=== PATIENT | female | born 1950 | race Caucasian/White ===

== ENCOUNTER → 2018-09-29 10:48 | Outpatient (CLI) | payer BC, SELFPAY ==
[2018-09-29 12:35] LABS: Alanine Aminotransferase 28 IU/L (9-52); Albumin 4.4 g/dL (3.5-5.0); Albumin Globulin Ratio 1.6 (1.0-2.8); Alkaline Phosphatase 69 U/L (38-126); Aspartate Aminotransferase 22 IU/L (14-36); BUN Creatinine Ratio 14.4 (6-22); Bilirubin Total 0.6 mg/dL (0.2-1.3); Blood Urea Nitrogen 13 mg/dL (7-17); Calcium 9.7 mg/dL (8.4-10.2); Carbon Dioxide 28 mmol/L (22-32); Chloride 102 mmol/L (98-107); Cholesterol 258 mg/dL (140-199); Estimated Glomerular Filt Rate > 60.0 mL/min (>60); Globulin 2.8 g/dL (1.7-4.1); Glucose 99 mg/dL (80-110); HDL Cholesterol 55 mg/dL (40-60); HEMOLYSIS < 15 (0-50); LDL Cholesterol Calculated 140 mg/dL (<100); Potassium 4.9 mmol/L (3.4-5.1); Sodium 141 mmol/L (137-145); Total Protein 7.2 g/dL (6.3-8.2); Triglycerides 315 mg/dL (35-150)
[2018-09-29 14:06] LABS: Creatinine Urine Random 33.8 mg/dL
[2018-09-29 14:12] LABS: Microalbumi Creatinin Ratio Ur 17.7 ug/mg CR (<30); Microalbumin Urine Random < 0.6 mg/dL (0-1.6)
== END ==
PROVIDERS: PCP Physician Assistant; Visit Provider Physician Assistant
DX: E78.5 Hyperlipidemia, unspecified (principal); I10 Essential (primary) hypertension
CPT/HCPCS: 36415; 80053; 80061; 82043; 82570

== ENCOUNTER → 2018-12-16 14:50 | Outpatient (CLI) | payer BC, SELFPAY ==
--- NOTE | 2018-12-16 | DI.MG.S_ITS ---
BILATERAL DIGITAL SCREENING MAMMOGRAM 3D/2D WITH CAD: 12/16/2018 CLINICAL: Routine screening. Comparison is made to exams dated: 12/15/2017 mammogram, 11/08/2016 mammogram - [facility], and 08/04/2015 mammogram - [facility]. The tissue of both breasts is heterogeneously dense. This may lower the sensitivity of mammography. Current study was also evaluated with a Computer Aided Detection (CAD) system. No significant masses, calcifications, or other findings are seen in either breast. There has been no significant interval change. IMPRESSION: NEGATIVE There is no mammographic evidence of malignancy. A 1 year screening mammogram is recommended. This exam was interpreted at Station ID: [id number]. NOTE: For mammograms, a report in lay terms will be sent to the patient. Approximately 15% of breast malignancies will not be visualized mammographically. In the management of a palpable breast mass, a negative mammogram must not discourage biopsy of a clinically suspicious lesion. Electronically Signed By: Kimberlee walker/ayah:12/16/2018 16:24:36 letter sent: Normal Exam ACR BI-RADS Category 1: Negative 3341F
== END ==
PROVIDERS: PCP Physician Assistant; Visit Provider Physician Assistant
DX: Z12.31 Encounter for screening mammogram for malignant neoplasm of breast (principal)
CPT/HCPCS: 77063; 77067

== ENCOUNTER → 2019-08-06 09:48 | Outpatient (CLI) | payer BC, SELFPAY ==
[2019-08-06 11:16] LABS: Alanine Aminotransferase 16 IU/L (9-52); Albumin 4.3 g/dL (3.5-5.0); Albumin Globulin Ratio 1.3 (1.0-2.8); Alkaline Phosphatase 67 U/L (38-126); Aspartate Aminotransferase 24 IU/L (14-36); BUN Creatinine Ratio 16.7 (6-22); Bilirubin Total 0.7 mg/dL (0.2-1.3); Blood Urea Nitrogen 15 mg/dL (7-17); Calcium 9.7 mg/dL (8.4-10.2); Carbon Dioxide 28 mmol/L (22-32); Chloride 103 mmol/L (98-107); Cholesterol 243 mg/dL (140-199); Estimated Glomerular Filt Rate > 60.0 mL/min (>60); Globulin 3.3 g/dL (1.7-4.1); Glucose 103 mg/dL (80-110); HDL Cholesterol 49 mg/dL (40-60); HEMOLYSIS < 15 (0-50); LDL Cholesterol Calculated 120 mg/dL (<100); Potassium 4.7 mmol/L (3.4-5.1); Sodium 139 mmol/L (137-145); Total Protein 7.6 g/dL (6.3-8.2); Triglycerides 370 mg/dL (35-150)
[2019-08-06 11:40] LABS: Creatinine Urine Random 62.1 mg/dL
[2019-08-06 11:48] LABS: Microalbumi Creatinin Ratio Ur 9.6 ug/mg CR (<30); Microalbumin Urine Random < 0.6 mg/dL (0-1.6)
[2019-08-06 11:56] LABS: Vitamin D 25 Hydroxy (D3) 35.2 ng/mL (30.0-100.0)
== END ==
PROVIDERS: PCP Physician Assistant; Visit Provider Physician Assistant
DX: E78.2 Mixed hyperlipidemia (principal); Z98.890 Other specified postprocedural states; M81.0 Age-related osteoporosis without current pathological fracture
CPT/HCPCS: 36415; 80053; 80061; 82043; 82306; 82570

== ENCOUNTER → 2019-11-09 13:16 | Outpatient (CLI) | payer BC, SELFPAY ==
[2019-11-09 16:02] LABS: Thyroid Stimulating Hormone 3.45 uIU/mL (0.47-4.68)
== END ==
PROVIDERS: PCP Physician Assistant; Visit Provider Internal Medicine Cardiovascular Disease
DX: E78.5 Hyperlipidemia, unspecified (principal)
CPT/HCPCS: 36415; 84443

== ENCOUNTER → 2019-11-19 09:04 | Outpatient (CLI) | payer BC, SELFPAY ==
[2019-11-19 10:19] LABS: Cholesterol 240 mg/dL (140-199); HDL Cholesterol 52 mg/dL (40-60); LDL Cholesterol Calculated 145 mg/dL (<100); Triglycerides 216 mg/dL (35-150)
[2019-11-19 11:03] LABS: Hep C Virus Ab w/Reflex Quant NEGATIVE s/c (NEGATIVE)
== END ==
PROVIDERS: PCP Physician Assistant; Visit Provider Physician Assistant
DX: Z11.59 Encounter for screening for other viral diseases (principal); E78.2 Mixed hyperlipidemia
CPT/HCPCS: 36415; 80061; 86803

== ENCOUNTER → 2020-03-28 10:25 | Outpatient (CLI) | payer BC, SELFPAY ==
--- NOTE | 2020-03-28 | DI.MG.S_ITS ---
BILATERAL DIGITAL SCREENING MAMMOGRAM 3D/2D WITH CAD: 03/28/2020 CLINICAL: Routine screening. Comparison is made to exams dated: 12/16/2018 mammogram, 12/15/2017 mammogram, and 11/08/2016 mammogram - [facility]. The tissue of both breasts is heterogeneously dense. This may lower the sensitivity of mammography. Current study was also evaluated with a Computer Aided Detection (CAD) system. No significant masses, calcifications, or other findings are seen in either breast. There has been no significant interval change. IMPRESSION: NEGATIVE There is no mammographic evidence of malignancy. A 1 year screening mammogram is recommended. This exam was interpreted at Station ID: [id number]. NOTE: For mammograms, a report in lay terms will be sent to the patient. Approximately 15% of breast malignancies will not be visualized mammographically. In the management of a palpable breast mass, a negative mammogram must not discourage biopsy of a clinically suspicious lesion. Electronically Signed By: Edith curtis/ayah:03/28/2020 11:40:22 copy to: JEMMA WILDER letter sent: Normal Exam ACR BI-RADS Category 1: Negative 3341F
== END ==
PROVIDERS: PCP Family Medicine; Referring Provider Physician Assistant; Visit Provider Physician Assistant
DX: Z12.31 Encounter for screening mammogram for malignant neoplasm of breast (principal)
CPT/HCPCS: 77063; 77067

== ENCOUNTER → 2020-07-13 09:38 | Outpatient (CLI) | payer BC, SELFPAY ==
[2020-07-13 10:13] LABS: Alanine Aminotransferase 21 IU/L (<35); Albumin 4.2 g/dL (3.5-5.0); Albumin Globulin Ratio 1.5 (1.0-2.8); Alkaline Phosphatase 68 U/L (38-126); Aspartate Aminotransferase 25 IU/L (14-36); BUN Creatinine Ratio 13.5 (6-22); Bilirubin Total 0.6 mg/dL (0.2-1.3); Blood Urea Nitrogen 12 mg/dL (7-17); Calcium 9.3 mg/dL (8.4-10.2); Carbon Dioxide 28 mmol/L (22-32); Chloride 106 mmol/L (98-107); Cholesterol 174 mg/dL (140-199); Estimated Glomerular Filt Rate > 60.0 mL/min (>60); Globulin 2.8 g/dL (1.7-4.1); Glucose 100 mg/dL (80-110); HDL Cholesterol 65 mg/dL (40-60); HEMOLYSIS < 15 (0-50); LDL Cholesterol Calculated 62 mg/dL (<100); Potassium 4.6 mmol/L (3.4-5.1); Sodium 138 mmol/L (137-145); Triglycerides 237 mg/dL (35-150)
== END ==
PROVIDERS: PCP Family Medicine; Referring Provider Family Medicine; Visit Provider Family Medicine
DX: E78.2 Mixed hyperlipidemia (principal)
CPT/HCPCS: 36415; 80053; 80061

== ENCOUNTER → 2020-08-11 10:31 | Outpatient (CLI) | payer BC, SELFPAY ==
[2020-08-13 13:16] LABS: COVID19 Sendout Not Detected
== END ==
PROVIDERS: PCP Family Medicine; Visit Provider Family Medicine
DX: J45.20 Mild intermittent asthma, uncomplicated (principal); R05 Cough
CPT/HCPCS: 87635

== ENCOUNTER → 2020-09-09 08:26 | Outpatient (CLI) | payer BC, SELFPAY ==
[2020-09-09 09:43] LABS: Add Manual Diff / Slide Review NO; Basophils Absolute Auto 0 /uL (0-100); Basophils Percent Auto 0.6 % (0-2); Eosinophils Absolute Auto 300 /uL (0-450); Eosinophils Percent Auto 8.1 % (2-4); Hematocrit 38.2 % (36-46); Hemoglobin 12.9 g/dL (12.0-16.0); Lymphocytes Absolute Auto 1100 /uL (1100-4500); Lymphocytes Percent Auto 27.5 % (25-40); Mean Corpuscular HGB Conc 33.8 % (30-36); Mean Corpuscular Hemoglobin 32.5 PG (26-34); Monocytes Absolute Auto 300 /uL (0-900); Monocytes Percent Auto 8.1 % (3-14); Neutrophils Absolute Auto 2200 /uL (1500-7000); Neutrophils Percent Auto 55.7 % (50-75); Platelet Count 245 X10^3/uL (150-400); Red Blood Cell Count 3.98 X10^6/uL (4.0-5.2); Red Cell Distribution Width 13.4 % (11.6-14.8); White Blood Cell Count 3.9 X10^3/uL (4.5-11.0)
[2020-09-09 10:30] LABS: Alanine Aminotransferase 23 IU/L (<35); Albumin 4.1 g/dL (3.5-5.0); Albumin Globulin Ratio 1.5 (1.0-2.8); Alkaline Phosphatase 77 U/L (38-126); Aspartate Aminotransferase 26 IU/L (14-36); BUN Creatinine Ratio 13.8 (6-22); Bilirubin Total 0.6 mg/dL (0.2-1.3); Blood Urea Nitrogen 11 mg/dL (7-17); Calcium 9.6 mg/dL (8.4-10.2); Carbon Dioxide 29 mmol/L (22-32); Chloride 104 mmol/L (98-107); Cholesterol 181 mg/dL (140-199); Estimated Glomerular Filt Rate > 60.0 mL/min (>60); Globulin 2.8 g/dL (1.7-4.1); Glucose 121 mg/dL (80-110); HDL Cholesterol 80 mg/dL (40-60); HEMOLYSIS < 15 (0-50); LDL Cholesterol Calculated 64 mg/dL (<100); Potassium 4.8 mmol/L (3.4-5.1); Sodium 137 mmol/L (137-145); Total Protein 6.9 g/dL (6.3-8.2); Triglycerides 186 mg/dL (35-150)
[2020-09-09 11:00] LABS: TSH w/ Reflex to FT4 3.11 uIU/mL (0.47-4.68)
== END ==
PROVIDERS: PCP Family Medicine; Referring Provider Family Medicine; Visit Provider Family Medicine
DX: Z00.00 Encounter for general adult medical examination without abnormal findings (principal)
CPT/HCPCS: 36415; 80053; 80061; 84443; 85025

== ENCOUNTER → 2021-03-29 11:25 | Outpatient (CLI) | payer BC, SELFPAY ==
--- NOTE | 2021-03-29 | DI.MG.S_ITS ---
BILATERAL DIGITAL SCREENING MAMMOGRAM 3D/2D WITH CAD: 03/29/2021 CLINICAL: Routine screening. Comparison is made to exams dated: 03/28/2020 mammogram, 12/16/2018 mammogram, and 12/15/2017 mammogram - [facility]. The tissue of both breasts is heterogeneously dense. This may lower the sensitivity of mammography. Current study was also evaluated with a Computer Aided Detection (CAD) system. No significant masses, calcifications, or other findings are seen in either breast. There has been no significant interval change. IMPRESSION: NEGATIVE There is no mammographic evidence of malignancy. A 1 year screening mammogram is recommended. This exam was interpreted at Station ID: [id number]. NOTE: For mammograms, a report in lay terms will be sent to the patient. Approximately 15% of breast malignancies will not be visualized mammographically. In the management of a palpable breast mass, a negative mammogram must not discourage biopsy of a clinically suspicious lesion. Electronically Signed By: Christopher sheppard/ayah:03/29/2021 12:24:00 copy to: JEMMA WILDER letter sent: Normal Exam ACR BI-RADS Category 1: Negative 3341F
== END ==
PROVIDERS: PCP Family Medicine; Referring Provider Family Medicine; Visit Provider Family Medicine
DX: Z12.31 Encounter for screening mammogram for malignant neoplasm of breast (principal)
CPT/HCPCS: 77063; 77067

== ENCOUNTER → 2021-07-20 10:02 | Outpatient (CLI) | payer BC, SELFPAY ==
[2021-07-20 11:36] LABS: COVID19 -Nasal RAPID Negative (Negative)
== END ==
PROVIDERS: PCP Family Medicine; Visit Provider Nurse Practitioner
DX: Z20.822 Contact with and (suspected) exposure to COVID-19 (principal)
CPT/HCPCS: 87635

== ENCOUNTER → 2021-08-08 09:16 | Outpatient (CLI) | payer BC, SELFPAY ==
[2021-08-08 09:33] LABS: Add Manual Diff / Slide Review NO; Basophils Absolute Auto 0 /uL (0-100); Basophils Percent Auto 0.8 % (0-2); Eosinophils Absolute Auto 500 /uL (0-450); Eosinophils Percent Auto 11.3 % (2-4); Hematocrit 39.6 % (36-46); Hemoglobin 13.1 g/dL (12.0-16.0); Lymphocytes Absolute Auto 1500 /uL (1100-4500); Lymphocytes Percent Auto 33.1 % (25-40); Mean Corpuscular Hemoglobin 31.3 PG (26-34); Mean Corpuscular Volume 94.6 fL (80-100); Monocytes Absolute Auto 300 /uL (0-900); Monocytes Percent Auto 7.8 % (3-14); Neutrophils Absolute Auto 2100 /uL (1500-7000); Platelet Count 217 X10^3/uL (150-400); Red Blood Cell Count 4.19 X10^6/uL (4.0-5.2); Red Cell Distribution Width 13.3 % (11.6-14.8); White Blood Cell Count 4.4 X10^3/uL (4.5-11.0)
[2021-08-08 09:43] LABS: Hemoglobin A1C% w Est Avg Glu 5.6 % (4.0-6.0)
[2021-08-08 10:13] LABS: Alanine Aminotransferase 30 IU/L (<35); Albumin 4.2 g/dL (3.5-5.0); Albumin Globulin Ratio 1.6 (1.0-2.8); Alkaline Phosphatase 57 U/L (38-126); Aspartate Aminotransferase 27 IU/L (14-36); BUN Creatinine Ratio 17.6 (6-22); Bilirubin Total 0.5 mg/dL (0.2-1.3); Blood Urea Nitrogen 15 mg/dL (7-17); Calcium 9.6 mg/dL (8.4-10.2); Carbon Dioxide 30 mmol/L (22-32); Chloride 100 mmol/L (98-107); Cholesterol 192 mg/dL (140-199); Estimated Glomerular Filt Rate > 60.0 mL/min (>60); Globulin 2.6 g/dL (1.7-4.1); Glucose 107 mg/dL (80-110); HDL Cholesterol 62 mg/dL (40-60); HEMOLYSIS < 15 (0-50); LDL Cholesterol Calculated 96 mg/dL (<100); Potassium 4.2 mmol/L (3.4-5.1); Sodium 135 mmol/L (137-145); Total Protein 6.8 g/dL (6.3-8.2); Triglycerides 169 mg/dL (35-150)
[2021-08-08 10:44] LABS: TSH w/ Reflex to FT4 5.28 uIU/mL (0.47-4.68)
[2021-08-08 11:14] LABS: Free T4, Direct Thyroxine 0.89 ng/dL (0.78-2.19)
== END ==
PROVIDERS: PCP Family Medicine; Referring Provider Family Medicine; Visit Provider Family Medicine
DX: Z00.00 Encounter for general adult medical examination without abnormal findings (principal); E78.2 Mixed hyperlipidemia; R73.03 Prediabetes
CPT/HCPCS: 36415; 80053; 80061; 83036; 84439; 84443; 85025

== ENCOUNTER → 2021-11-22 10:21 | Outpatient (CLI) | payer BC, SELFPAY ==
[2021-11-22 11:32] LABS: Alanine Aminotransferase 25 IU/L (<35); Albumin 4.3 g/dL (3.5-5.0); Albumin Globulin Ratio 1.5 (1.0-2.8); Alkaline Phosphatase 55 U/L (38-126); Aspartate Aminotransferase 32 IU/L (14-36); BUN Creatinine Ratio 17.4 (6-22); Bilirubin Total 0.5 mg/dL (0.2-1.3); Blood Urea Nitrogen 15 mg/dL (7-17); Calcium 9.6 mg/dL (8.4-10.2); Carbon Dioxide 28 mmol/L (22-32); Chloride 106 mmol/L (98-107); Cholesterol 183 mg/dL (140-199); Estimated Glomerular Filt Rate > 60.0 mL/min (>60); Globulin 2.9 g/dL (1.7-4.1); Glucose 93 mg/dL (80-110); HDL Cholesterol 72 mg/dL (40-60); HEMOLYSIS < 15 (0-50); LDL Cholesterol Calculated 74 mg/dL (<100); Potassium 4.5 mmol/L (3.4-5.1); Sodium 140 mmol/L (137-145); Total Protein 7.2 g/dL (6.3-8.2); Triglycerides 184 mg/dL (35-150)
[2021-11-22 13:08] LABS: Free T4, Direct Thyroxine 0.93 ng/dL (0.78-2.19)
[2021-11-22 13:23] LABS: Thyroid Stimulating Hormone 1.78 uIU/mL (0.47-4.68)
== END ==
PROVIDERS: PCP Family Medicine; Referring Provider Family Medicine; Visit Provider Family Medicine
DX: E03.9 Hypothyroidism, unspecified (principal); E78.2 Mixed hyperlipidemia
CPT/HCPCS: 36415; 80053; 80061; 84439; 84443

== ENCOUNTER → 2022-03-04 13:46 | Outpatient (CLI) | payer BC, SELFPAY ==
--- NOTE | 2022-03-04 | DI.ECHO.S_ITS ---
[place] [facility]---------+ [facility] +---------+ : : [address] : : : : [id number] : : : : Phone: [phone]+ Echocardiogram Report + + :Name: BRIAN CARBAJAL Study Date: 03/04/2022 Height: 72 in : :[facility] ReadingLocation: Weight: 150 lb : : Gender: Female BSA: 1.9 m2 : :: 1950 Age: 71 yrs BP: 131/77 mmHg: :Reason For Study: POST MITRAL VALVE REPAIR : :Ordering Physician: ARIEL, : :GRICEL Performed By: Alyce Stephen : :Referring: GRICEL GEORGE : + + Interpretation Summary 1) Normal left ventricular thickness, size, wall motion, and systolic function (EF 55-60%). 2) Normal right ventricular size and function. 3) An annuloplasty ring is noted in the mitral position. There is trace mitral regurgitation. 4) compared to the Echo done 01/28/2018, no significant change. Procedure: A two-dimensional transthoracic echocardiogram with color flow and Doppler was performed. The study quality was technically adequate. Comparison is made with the echocardiogram of 01/28/2018. The patient was in sinus rhythm with heart rates between 65-75 bpm during the exam. Left Ventricle: The left ventricle is normal in size and wall thickness. The ejection fraction is estimated to be 55-60%. Left ventricular systolic function appears normal without focal wall motion abnormalities. Right Ventricle: The right ventricle is normal in size and function. Atria: The left atrial size is normal. Right atrial size is normal. There is no Doppler evidence for an interatrial shunt. Mitral Valve: An annuloplasty ring is noted in the mitral position. There is trace mitral regurgitation. Aortic Valve: The aortic valve is trileaflet. The aortic valve opens well. There is no aortic valve stenosis. There is trace aortic regurgitation. Tricuspid Valve: There is mild tricuspid regurgitation. The right ventricular systolic pressure is estimated to be at least 24 mmHg based on an estimated right atrial pressure of 3 mm Hg. Pulmonic Valve: The pulmonic valve is not well seen, but is grossly normal. There is moderate pulmonic regurgitation. Great Vessels: The aortic root is normal size. The dimensions of the ascending aorta are normal. The IVC is of normal diameter and collapses greater than 50% with a sniff. This suggests a low right atrial pressure of 3 mm Hg. Pericardium/ Pleura There is no pericardial effusion. There is no pleural effusion. MMode/2D Measurements & Calculations LVIDd: 4.8 cm LVOT diam: 2.0 cm LVIDs: 3.3 cm Ao root diam: 3.5 cm FS: 32.3 % asc Aorta Diam: 3.5 cm IVSd: 1.00 cm Ao Arch Diam (Prox Trans): 2.7 cm LVPWd: 0.94 cm LV sheffield. diameter/BSA (cm/m^2): 2.6 LV sys. diameter/BSA (cm/m^2): 1.7 LA A2 area: 21.6 cm2 RA long axis: 5.5 cm LA A4 area: 15.7 cm2 RA area: 16.7 cm2 LA length (vol): 4.8 cm RA vol: 43.1 ml LA vol: 59.7 ml RA : 22.9 ml/m2 LA vol index: 31.7 ml/m2 IVC diam: 0.95 cm RVD1 (basal): 2.9 cm RVD2 (mid): 2.7 cm TAPSE: 1.6 cm Doppler Measurements & Calculations Ao V2 max: 111.4 cm/sec LVOT Max Oren: 67.3 cm/sec Ao V2 mean: 74.3 cm/sec LV V1 max P.8 mmHg Ao max P.0 mmHg LV V1 VTI: 15.3 cm Ao mean P.5 mmHg PUSHPA(I,D): 2.0 cm2 Ao V2 VTI: 22.9 cm PUSHPA(V,D): 1.8 cm2 sev ratio: 0.67 PUSHPA indexed to BSA (cm^2/m^2): 1.1 MV E max oren: 68.4 cm/sec TR max oren: 231.0 cm/sec MV A max oren: 106.4 cm/sec TR max P.3 mmHg MV E/A: 0.64 PA pr(Accel): 27.6 mmHg Med Peak E' Oren: 6.7 cm/sec E/E' med: 10.2 Lat Peak E' Oren: 7.3 cm/sec E/E' lat: 9.3 E/e' average: 9.8 MV dec time: 0.35 sec MVA(VTI): 1.3 cm2 MV V2 mean: 67.7 cm/sec SV(LVOT): 45.8 ml MV mean P.1 mmHg MV V2 VTI: 36.5 cm Reading Physician:03:13 PM
== END ==
PROVIDERS: PCP Family Medicine; Referring Provider Internal Medicine Cardiovascular Disease; Visit Provider Internal Medicine Cardiovascular Disease
DX: Z98.890 Other specified postprocedural states (principal); I07.1 Rheumatic tricuspid insufficiency; I37.1 Nonrheumatic pulmonary valve insufficiency
CPT/HCPCS: 93306

== ENCOUNTER → 2022-04-23 11:10 | Outpatient (CLI) | payer BC, SELFPAY ==
--- NOTE | 2022-04-23 | DI.MG.S_ITS ---
BILATERAL DIGITAL SCREENING MAMMOGRAM 3D/2D WITH CAD: 04/23/2022 CLINICAL: Routine screening. Comparison is made to exams dated: 03/29/2021 mammogram, 03/28/2020 mammogram, 12/16/2018 mammogram, and 12/15/2017 mammogram - [facility]. The tissue of both breasts is heterogeneously dense. This may lower the sensitivity of mammography. Current study was also evaluated with a Computer Aided Detection (CAD) system. No significant masses, calcifications, or other findings are seen in either breast. There has been no significant interval change. IMPRESSION: NEGATIVE There is no mammographic evidence of malignancy. A 1 year screening mammogram is recommended. This exam was interpreted at Station ID: [id number]. NOTE: For mammograms, a report in lay terms will be sent to the patient. Approximately 15% of breast malignancies will not be visualized mammographically. In the management of a palpable breast mass, a negative mammogram must not discourage biopsy of a clinically suspicious lesion. Electronically Signed By: Terrence lee/ayah:04/23/2022 12:31:24 copy to: JEMMA WILDER letter sent: Normal Exam ACR BI-RADS Category 1: Negative 3341F
== END ==
PROVIDERS: PCP Family Medicine; Referring Provider Family Medicine; Visit Provider Family Medicine
DX: Z12.31 Encounter for screening mammogram for malignant neoplasm of breast (principal)
CPT/HCPCS: 77063; 77067

== ENCOUNTER → 2022-06-21 14:22 | Outpatient (CLI) | payer BC, SELFPAY ==
--- NOTE | 2022-06-21 14:23 | DI.RAD.S_ITS ---
PROCEDURE: XR CHEST 2V INDICATIONS: assess for atelectasis vs other with covid hx and asthma dx TECHNIQUE: 2 views of the chest were acquired. COMPARISON: None. FINDINGS: Surgical changes and devices: Postsurgical changes are seen with sternotomy wires and prosthetic heart valve. Lungs and pleura: Lungs are clear. No pleural effusions or pneumothorax. Mediastinum: Mediastinal contours are normal. Heart size is normal. Bones and chest wall: No suspicious bony abnormalities. Soft tissues appear unremarkable. IMPRESSION: No acute cardiopulmonary abnormality. Dictated by: Eulalio Puckett M.D. on 06/21/2022 at 16:44 Approved by: Eulalio Puckett M.D. on 06/21/2022 at 16:44
== END ==
PROVIDERS: PCP Family Medicine; Referring Provider Family Medicine; Visit Provider Pediatrics
DX: R05.3 Chronic cough (principal)
CPT/HCPCS: 71046

== ENCOUNTER → 2022-10-08 10:18 | Outpatient (CLI) | payer BC, SELFPAY ==
[2022-10-08 12:12] LABS: Add Manual Diff / Slide Review NO; Basophils Absolute Auto 0 /uL (0-100); Basophils Percent Auto 0.7 % (0-2); Eosinophils Absolute Auto 400 /uL (0-450); Eosinophils Percent Auto 11.2 % (2-4); Hematocrit 36.2 % (36-46); Hemoglobin 12.5 g/dL (12.0-16.0); Lymphocytes Absolute Auto 1200 /uL (1100-4500); Lymphocytes Percent Auto 32.2 % (25-40); Mean Corpuscular HGB Conc 34.4 % (30-36); Mean Corpuscular Hemoglobin 31.8 PG (26-34); Mean Corpuscular Volume 92.6 fL (80-100); Monocytes Absolute Auto 400 /uL (0-900); Monocytes Percent Auto 10.3 % (3-14); Neutrophils Absolute Auto 1700 /uL (1500-7000); Neutrophils Percent Auto 45.6 % (50-75); Platelet Count 316 X10^3/uL (150-400); Red Blood Cell Count 3.91 X10^6/uL (4.0-5.2); White Blood Cell Count 3.7 X10^3/uL (4.5-11.0)
[2022-10-08 13:13] LABS: Alanine Aminotransferase 20 IU/L (<35); Albumin 3.8 g/dL (3.5-5.0); Albumin Globulin Ratio 1.5 (1.0-2.8); Alkaline Phosphatase 79 U/L (38-126); Aspartate Aminotransferase 21 IU/L (14-36); BUN Creatinine Ratio 13.6 (6-22); Bilirubin Total 0.5 mg/dL (0.2-1.3); Blood Urea Nitrogen 11 mg/dL (7-17); Calcium 9.2 mg/dL (8.4-10.2); Carbon Dioxide 27 mmol/L (22-32); Chloride 103 mmol/L (98-107); Cholesterol 141 mg/dL (140-199); Estimated Glomerular Filt Rate > 60 mL/min (>60); Globulin 2.5 g/dL (1.7-4.1); Glucose 93 mg/dL (80-110); HDL Cholesterol 48 mg/dL (40-60); HEMOLYSIS < 15 (0-50); LDL Cholesterol Calculated 68 mg/dL (<100); Potassium 4.8 mmol/L (3.4-5.1); Sodium 138 mmol/L (137-145); Total Protein 6.3 g/dL (6.3-8.2); Triglycerides 127 mg/dL (35-150)
[2022-10-08 18:11] LABS: Thyroid Stimulating Hormone 1.42 uIU/mL (0.47-4.68)
== END ==
PROVIDERS: PCP Family Medicine; Referring Provider Family Medicine; Visit Provider Family Medicine
DX: Z00.00 Encounter for general adult medical examination without abnormal findings (principal); D12.6 Benign neoplasm of colon, unspecified; E03.9 Hypothyroidism, unspecified; E78.2 Mixed hyperlipidemia; M85.80 Other specified disorders of bone density and structure, unspecified site; R73.03 Prediabetes
CPT/HCPCS: 36415; 80053; 80061; 83036; 84439; 84443; 85025

== ENCOUNTER → 2022-10-14 12:26 | Outpatient (CLI) | payer BC, SELFPAY ==
--- NOTE | 2022-10-14 12:27 | DI.RAD.S_ITS ---
PROCEDURE: XR DEXA AXIAL SKELETON INDICATIONS: Patient has a history of osteopenia, follow-up COMPARISON: None. FINDINGS: This blank DEXA report has been sent in error by the PACS system. The correct and complete report will be forthcoming in 1-2 days. Thank you for your patience and understanding. Dictated by: Diana Esqueda MD, PhD on 10/15/2022 at 13:19 Approved by: Diana Esqueda MD, PhD on 10/15/2022 at 13:19
== END ==
PROVIDERS: PCP Family Medicine; Referring Provider Family Medicine; Visit Provider Family Medicine
DX: M85.88 Other specified disorders of bone density and structure, other site (principal); Z13.820 Encounter for screening for osteoporosis; Z78.0 Asymptomatic menopausal state
CPT/HCPCS: 77080

== ENCOUNTER → 2023-05-05 11:14 | Outpatient (CLI) | payer BC, SELFPAY ==
--- NOTE | 2023-05-05 14:10 | DI.MRI.S_ITS ---
BREAST MRI OF BOTH BREASTS: 05/05/2023 CLINICAL: History of Heterogenously dense breast. Comparison is made to exams dated: 04/23/2022 mammogram, 03/29/2021 mammogram, and 03/28/2020 mammogram - [facility]. PROCEDURE: MR BREAST BI WO/W CON INDICATIONS: Pt with hx of heterogenously dense breasts TECHNIQUE: The patient was placed prone in a dedicated breast imaging coil. Precontrast axial STIR and 3D FLASH without fat saturation sequences were obtained. Both before and after bolus injection of contrast, sequential 1-minute axial 3D FLASH with fat saturation sequences for 3 time points, with subtraction images and maximum intensity projections (MIP's) generated. Delayed sagittal FLASH images with fat saturation were also obtained. Computer-aided detection, including computer algorithm analysis of MRI image data for lesion detection and characterization, pharmacokinetic analysis, with further physician review for interpretation, was performed. FINDINGS: Image quality: Good There is mild background parenchymal enhancement. Right breast: No suspicious mass, non-mass enhancement, or focus. Left breast: No suspicious mass, non-mass enhancement, or focus. Miscellaneous: Sternotomy wires and cardiac valve device is seen. No suspicious findings in the axillary or internal mammary regions. Partially visualized upper abdomen is unremarkable. There is a partially visualized suspected hiatal hernia. IMPRESSION: NEGATIVE No suspicious findings in either breast. Recommend continued screening mammogram and supplemental MR screening. BIRADS 1 COMMENT: The imaging literature indicates that a negative contrast breast MRI examination has a high sensitivity and a moderate specificity for detecting and excluding invasive carcinomas to a detection threshold of 3-5 mm; nonetheless, appropriate clinical and mammographic follow-up are recommended. MRI is not sensitive for detecting DCIS (ductal carcinoma in situ) and may not detect large invasive neoplasms that show only minimal enhancement such as mucinous carcinoma. If there are suspicious calcifications or clinically worrisome palpable masses, then biopsy should still be considered. Invasive neoplasms can be hidden by co-existent and benign enhancement caused by mastitis, hormone therapy effects, radiation therapy, , and recent biopsy or surgery. False positive examinations can occur in a number of circumstances, including breasts that have recently been subject to invasive procedures and those that contain atypical ductal hyperplasia, hormonally stimulated glandular tissue, fat necrosis, or radial scars. This exam was interpreted at Station ID: [id number]. Electronically Signed By: Santy Gill M.D. lc/:05/05/2023 12:46:21 copy to: JEMMA WILDER letter sent: Normal Exam ACR BI-RADS Category 1: Negative 3341F
== END ==
PROVIDERS: PCP Family Medicine; Referring Provider Family Medicine; Visit Provider Family Medicine
DX: R92.2 Inconclusive mammogram (principal)
CPT/HCPCS: 77049; A9579

== ENCOUNTER → 2023-08-29 09:26 | Outpatient (CLI) | payer BC, SELFPAY ==
[2023-08-29 10:45] LABS: Add Manual Diff / Slide Review NO; Basophils Absolute Auto 0 /uL (0-100); Basophils Percent Auto 0.7 % (0-2); Eosinophils Absolute Auto 400 /uL (0-450); Eosinophils Percent Auto 9.3 % (2-4); Hematocrit 39.2 % (36-46); Hemoglobin 13.4 g/dL (12.0-16.0); Lymphocytes Absolute Auto 1700 /uL (1100-4500); Lymphocytes Percent Auto 35.5 % (25-40); Mean Corpuscular HGB Conc 34.2 % (30-36); Mean Corpuscular Hemoglobin 32.5 PG (26-34); Mean Corpuscular Volume 95.2 fL (80-100); Monocytes Absolute Auto 300 /uL (0-900); Monocytes Percent Auto 6.6 % (3-14); Neutrophils Absolute Auto 2300 /uL (1500-7000); Neutrophils Percent Auto 47.9 % (50-75); Platelet Count 310 X10^3/uL (150-400); Red Blood Cell Count 4.12 X10^6/uL (4.0-5.2); Red Cell Distribution Width 13.2 % (11.6-14.8); White Blood Cell Count 4.7 X10^3/uL (4.5-11.0)
[2023-08-29 11:21] LABS: Alanine Aminotransferase 20 IU/L (<35); Albumin 4.2 g/dL (3.5-5.0); Albumin Globulin Ratio 1.4 (1.0-2.8); Alkaline Phosphatase 67 U/L (38-126); Aspartate Aminotransferase 27 IU/L (14-36); BUN Creatinine Ratio 14.3 (6-22); Bilirubin Total 0.4 mg/dL (0.2-1.3); Blood Urea Nitrogen 12 mg/dL (7-17); Calcium 9.6 mg/dL (8.4-10.2); Carbon Dioxide 25 mmol/L (22-32); Chloride 104 mmol/L (98-107); Estimated Glomerular Filt Rate > 60 mL/min (>60); Globulin 3.1 g/dL (1.7-4.1); Glucose 108 mg/dL (80-110); HEMOLYSIS < 15 (0-50); Potassium 4.7 mmol/L (3.4-5.1); Sodium 137 mmol/L (137-145); Total Protein 7.3 g/dL (6.3-8.2)
[2023-08-29 11:25] LABS: HEMOLYSIS < 15 (0-50); Iron 83 ug/dL (37-170)
[2023-08-29 11:35] LABS: Percent Iron Saturation 24 % (15-50); Total Iron Binding Capacity 343 ug/dL (265-497)
[2023-08-29 11:44] LABS: Transferrin 282 mg/dL (206-381)
[2023-08-29 12:06] LABS: Vitamin B12 735 pg/mL (239-931)
== END ==
PROVIDERS: PCP Family Medicine; Referring Provider Family Medicine; Visit Provider Family Medicine
DX: E03.9 Hypothyroidism, unspecified (principal); R73.03 Prediabetes
CPT/HCPCS: 36415; 80053; 82607; 83540; 83550; 85025

== ENCOUNTER 2023-11-17 10:23 | Day surgery (SDC) | payer BC, SELFPAY ==
--- NOTE | 2023-11-17 | PATH_ITS ---
[facility] Accession Number: [id number] No. of containers..01 Tissue . 01 Material submitted: . colon - TRANSVERSE COLON POLYP . 01 Diagnosis: Transverse Colon Polyp: Tubular adenoma. MRV 11/20/2023 1600 Local . 01 Electronically signed: . Ray Will MD, PhD, Pathologist NPI- [id number] . 01 Gross description: . TRANSVERSE COLON POLYP: Received in formalin is 1 fragment(s) of villarreal, soft tissue measuring 0.3 x 0.3 x 0.1 cm submitted entirely in 1 cassette(s) /HASMUKH 11/19/2023 1936 Local . 01 Pathologist provided ICD-10: D12.3 . 01 CPT . 122894 Specimen Comment: A courtesy copy of this report has been sent to [phone] Performed at: 01 [facility] [address] [place] [address], [place], [place] [id number] MD Christopher Jaurez MD Phone: [phone]
[2023-11-17 10:50] VITALS: BP 142/83; PULSE 107; RESP 16; TEMP 36.2; O2SAT 98; BMI 20.9
--- NOTE | 2023-11-17 11:18 | P.HP_ITS ---
History of Present Illness History of Present Illness Date Patient Seen: 11/17/23 Time Patient Seen: 11:19 Chief complaint: SDC Narrative: Personal history of colon polyps. Serrated polyposis syndrome is described. Last colonoscopy was couple of years ago. FOR[facility]LY [facility], [facility] Medical History Well adult exam Chronic cough Hypothyroid Prediabetes Prediabetes Tubular adenoma of colon Surgical History History of mitral valve replacement Status post hysterectomy History of tonsillectomy Family History Mother Diabetes mellitus Father Cancer Social History household members: spouse Smoking Status: Former smoker Tobacco: How many years used: 5 second hand exposure: No alcohol intake: current substance use type: does not use Meds Home Medications and Allergies Home Medications Medication Instructions Recorded Confirmed Type nortriptyline 50 mg capsule 50 mg PO HS #90 caps 09/04/23 11/17/23 Rx trazodone 50 mg tablet 50 mg PO BEDTIME PRN sleep #30 tabs 09/04/23 11/17/23 Rx Ventolin HFA 90 mcg/actuation 2 puff inhalation Q6H PRN 09/09/23 11/17/23 Rx aerosol inhaler (albuterol sulfate) shortness of breath or wheezing #8 grams fluticasone propionate 220 2 inh inhalation BID #12 grams 09/09/23 11/17/23 Rx mcg/actuation HFA aerosol inhaler fluticasone propionate 50 1 spray intranasal HS ##16 09/09/23 11/17/23 Rx mcg/actuation nasal spray,suspension levothyroxine 50 mcg tablet 50 mcg PO DAILY #90 tabs 09/09/23 11/17/23 Rx pravastatin 20 mg tablet See Rx Instructions .Route 09/09/23 11/17/23 Rx .COMPLEX #90 tabs montelukast 10 mg tablet 10 mg PO QDAY #90 tabs 11/06/23 11/17/23 Rx Allergies Allergy/AdvReac Type Severity Reaction Status Date / Time No Known Drug Allergies Allergy Verified 11/17/23 10:28 Review of Systems Review of Systems ROS: Yes All systems reviewed with the patient and are negative except as otherwise documented Exam Vital Signs (past 8 hours): - 11/17/23 10:50 Temperature 97.2 F L Pulse Rate 107 H Respiratory Rate 16 Blood Pressure 142/83 H Pulse Oximetry 98 Oxygen Delivery Method Room Air Oxygen Delivery Method Room Air Const General: cooperative HENMT Head: normal to inspection Eyes General: appearance normal, both eyes and all related structures Neck Neck: normal visual inspection Chest Chest: normal inspection of the chest Resp Effort & Inspection: normal respiratory effort Cardio Rate: regular rate GI Inspection: normal to inspection Skin General: no rashes or lesions noted Neuro General: patient alert and patient awake Extrem General: normal to inspection and no pedal edema Psych Appearance: grossly normal Assessment & Plan Assessment & Plan narrative: 73-year-old female with a personal history of adenomatous colon polyps. She said to have serrated polyposis syndrome. Surveillance colonoscopy is pursued today
--- NOTE | 2023-11-17 11:20 | PM.PREOP ---
Pre-operative Note Interval Note History & Physical reviewed/Exam performed by Physician: Yes Changes to H&P: No ASA Class (for procedural sedation): II
[2023-11-17] MEDS: LACTATED RINGERS 1,000 ML 42 ML IV ×2 (11:30→12:35)
[2023-11-17 12:29] VITALS: BP 95/64; PULSE 84; RESP 20; TEMP 36.2; O2SAT 97
--- NOTE | 2023-11-17 12:29 | PM.OP.COLON ---
Operative Date/Time/Diagnoses Date of procedure: 11/17/23 Time of procedure: 12:29 Pre-op diagnosis: Personal history of serrated polyposis syndrome and adenomatous colon polyps. Post-op diagnosis: same Procedure & Clinicians Study performed: Colonoscopy with cold forceps polypectomy Same procedure as scheduled: Yes Indications: Personal history of serrated polyposis syndrome and adenomatous colon polyps. Surgeon: Shashi Block Procedure Notes SCOAP/Timeout: Done Procedure in detail: After the risks and benefits were explained, written and verbal informed consent was obtained. The patient was brought into the procedure room and placed into the left lateral decubitus position. Please see anesthesia note for sedation details. Digital rectal examination was accomplished. The scope was introduced into the patient and advanced under direct visualization to the cecum as identified by the appendiceal orifice and ileocecal valve. The scope was slowly withdrawn to carefully examine the mucosa for any defects or lesions. Comprehensive imaging was accomplished throughout the rectum including the dentate line. The colon was decompressed, the scope was then removed from the patient who tolerated the procedure well. Pediatric colonoscope Bowel prep adequate Scope withdrawal time: 12 minutes Sedation minutes: 20 Complications: none Impression: The patient had moderate diverticulosis in the region of the sigmoid. Grade 2-3 internal hemorrhoids were noted. There was a 4 mm polyp in the transverse colon removed with cold forceps. No additional significant pathology was appreciated throughout. Endoscopic diagnosis 1. Colon polyp 2. Diverticulosis 3. Grade 2-3 hemorrhoids Post-procedure Plan for aftercare: 1. Await histopathology 2. Repeat colonoscopy in 2 years. Disposition: PACU
[2023-11-17 12:34] VITALS: BP 102/59; PULSE 79; RESP 22; O2SAT 99
[2023-11-17 12:39] VITALS: BP 107/61; PULSE 84; RESP 24; O2SAT 95
[2023-11-17 12:44] VITALS: BP 107/61; PULSE 88; RESP 18; TEMP 36.7; O2SAT 99
[2023-11-17 12:47] VITALS: BP 113/71; PULSE 84; RESP 22; TEMP 36.2; O2SAT 97
== END 2023-11-17 13:00 | disposition home or self-care (01) ==
PROVIDERS: PCP Family Medicine; Referring Provider Internal Medicine Gastroenterology; Visit Provider Internal Medicine Gastroenterology
PROC: 0DJD8ZZ Inspection of Lower Intestinal Tract, Via Natural or Artificial Opening Endoscopic (ICD-10-PCS; CPT 45378; principal; 2023-11-17 11:30)
DX: Z12.11 Encounter for screening for malignant neoplasm of colon (principal); K57.30 Diverticulosis of large intestine without perforation or abscess without bleeding; K64.1 Second degree hemorrhoids; D12.3 Benign neoplasm of transverse colon
CPT/HCPCS: 45380; J2704

== ENCOUNTER → 2024-04-27 14:29 | Outpatient (CLI) | payer BC, SELFPAY ==
--- NOTE | 2024-04-27 14:29 | DI.MG.S_ITS ---
BILATERAL DIGITAL SCREENING MAMMOGRAM 3D/2D WITH CAD: 04/27/2024 CLINICAL: Routine screening. Comparison is made to exams dated: 04/23/2022 mammogram, 03/29/2021 mammogram, and 03/28/2020 mammogram - [facility]. Both breasts are heterogeneously dense, which may obscure small masses (category c / 51-75% glandular tissue). Current study was also evaluated with a Computer Aided Detection (CAD) system. No significant masses, calcifications, or other findings are seen in either breast. There has been no significant interval change. IMPRESSION: NEGATIVE There is no mammographic evidence of malignancy. A 1 year screening mammogram is recommended. Based on the Tyrer Cuzick model (a risk assessment model) the patient's lifetime risk is 8.5% and her 10 year risk is 6.4%. According to the ACR, ACS, and NCCN guidelines, an annual breast MRI exam along with mammogram is recommended if the patient's lifetime risk is 20% or greater. This exam was interpreted at Station ID: [id number]. NOTE: For mammograms, a report in lay terms will be sent to the patient. Approximately 15% of breast malignancies will not be visualized mammographically. In the management of a palpable breast mass, a negative mammogram must not discourage biopsy of a clinically suspicious lesion. Electronically Signed By: Kimberlee walker/ayah:04/27/2024 15:59:11 copy to: JEMMA WILDER letter sent: Normal Exam ACR BI-RADS Category 1: Negative 3341F
== END ==
PROVIDERS: PCP Family Medicine; Referring Provider Family Medicine; Visit Provider Family Medicine
DX: Z12.31 Encounter for screening mammogram for malignant neoplasm of breast (principal); R92.333 Mammographic heterogeneous density, bilateral breasts
CPT/HCPCS: 77063; 77067

== ENCOUNTER → 2024-09-01 10:27 | Outpatient (CLI) | payer BC, SELFPAY ==
[2024-09-01 11:51] LABS: Alanine Aminotransferase 23 IU/L (<35); Albumin 4.2 g/dL (3.5-5.0); Albumin Globulin Ratio 1.6 (1.0-2.8); Alkaline Phosphatase 63 U/L (38-126); Aspartate Aminotransferase 30 IU/L (14-36); BUN Creatinine Ratio 14.3 (6-22); Bilirubin Total 0.8 mg/dL (0.2-1.3); Blood Urea Nitrogen 12 mg/dL (7-17); Calcium 9.8 mg/dL (8.4-10.2); Carbon Dioxide 27 mmol/L (22-32); Chloride 104 mmol/L (98-107); Cholesterol 191 mg/dL (140-199); Estimated Glomerular Filt Rate > 60 mL/min (>60); Globulin 2.7 g/dL (1.7-4.1); Glucose 111 mg/dL (80-110); HDL Cholesterol 77 mg/dL (40-60); HEMOLYSIS < 15 (0-50); LDL Cholesterol Calculated 90 mg/dL (<100); Potassium 5.1 mmol/L (3.4-5.1); Sodium 137 mmol/L (137-145); Total Protein 6.9 g/dL (6.3-8.2); Triglycerides 121 mg/dL (35-150)
[2024-09-01 12:01] LABS: Free T4, Direct Thyroxine 0.96 ng/dL (0.78-2.19)
[2024-09-01 12:15] LABS: Thyroid Stimulating Hormone 1.89 uIU/mL (0.47-4.68)
== END ==
PROVIDERS: PCP Family Medicine; Referring Provider Family Medicine; Visit Provider Family Medicine
DX: E03.9 Hypothyroidism, unspecified (principal); E78.2 Mixed hyperlipidemia; R73.03 Prediabetes
CPT/HCPCS: 36415; 80053; 80061; 84439; 84443

== ENCOUNTER → 2025-04-04 08:50 | Outpatient (CLI) | payer BC, SELFPAY ==
[2025-04-04 09:23] LABS: Add Manual Diff / Slide Review NO; Basophils Absolute Auto 0 /uL (0-100); Basophils Percent Auto 0.9 % (0-2); Eosinophils Absolute Auto 600 /uL (0-450); Eosinophils Percent Auto 11.9 % (2-4); Hematocrit 37.9 % (36-46); Hemoglobin 12.6 g/dL (12.0-16.0); Lymphocytes Absolute Auto 1100 /uL (1100-4500); Lymphocytes Percent Auto 21.3 % (25-40); Mean Corpuscular HGB Conc 33.2 % (30-36); Mean Corpuscular Hemoglobin 32.2 PG (26-34); Mean Corpuscular Volume 97.2 fL (80-100); Monocytes Absolute Auto 400 /uL (0-900); Monocytes Percent Auto 7.2 % (3-14); Neutrophils Absolute Auto 3100 /uL (1500-7000); Neutrophils Percent Auto 58.7 % (50-75); Platelet Count 277 X10^3/uL (150-400); Red Cell Distribution Width 14.9 % (11.6-14.8); White Blood Cell Count 5.3 X10^3/uL (4.5-11.0)
[2025-04-04 09:30] LABS: Hemoglobin A1C% w Est Avg Glu 5.4 % (4.0-6.0)
[2025-04-04 09:34] LABS: Alanine Aminotransferase 14 IU/L (<35); Albumin 4.1 g/dL (3.5-5.0); Albumin Globulin Ratio 1.4 (1.0-2.8); Alkaline Phosphatase 83 U/L (38-126); Aspartate Aminotransferase 23 IU/L (14-36); BUN Creatinine Ratio 17.6 (6-22); Bilirubin Total 0.8 mg/dL (0.2-1.3); Blood Urea Nitrogen 15 mg/dL (7-17); Calcium 9.7 mg/dL (8.4-10.2); Carbon Dioxide 25 mmol/L (22-32); Chloride 106 mmol/L (98-107); Cholesterol 198 mg/dL (140-199); Estimated Glomerular Filt Rate > 60 mL/min (>60); Globulin 2.9 g/dL (1.7-4.1); Glucose 103 mg/dL (70-99); HDL Cholesterol 80 mg/dL (40-60); HEMOLYSIS < 15 (0-50); LDL Cholesterol Calculated 99 mg/dL (<100); Potassium 5.2 mmol/L (3.4-5.1); Sodium 139 mmol/L (137-145); Triglycerides 94 mg/dL (35-150)
[2025-04-04 09:51] LABS: Free T4, Direct Thyroxine 1.01 ng/dL (0.78-2.19)
== END ==
PROVIDERS: PCP Family Medicine; Referring Provider Family Medicine; Visit Provider Family Medicine
DX: R73.03 Prediabetes (principal); E03.9 Hypothyroidism, unspecified; M85.80 Other specified disorders of bone density and structure, unspecified site; E78.2 Mixed hyperlipidemia
CPT/HCPCS: 36415; 80053; 80061; 83036; 84439; 84443; 85025

== ENCOUNTER → 2025-04-06 14:49 | Outpatient (CLI) | payer BC, SELFPAY ==
--- NOTE | 2025-04-06 14:52 | DI.US.S_ITS ---
PROCEDURE: US ABDOMEN LIMITED INDICATIONS: eval abd wall for possible hernia TECHNIQUE: Real-time focused scanning was performed of the abdominal wall, with image documentation. COMPARISON: None. FINDINGS: Targeted ultrasound in the region of clinical concern at the left lower abdominal wall. No hernia demonstrated. No fluid collection. IMPRESSION: No hernia demonstrated. No fluid collection. CT abdomen pelvis with IV contrast could be considered for further evaluation. Dictated by: Terrence Henry M.D. on 04/06/2025 at 17:16 Approved by: Terrence Henry M.D. on 04/06/2025 at 17:18
== END ==
LOC: US 14:51
PROVIDERS: PCP Family Medicine; Referring Provider Family Medicine; Visit Provider Family Medicine
DX: K43.9 Ventral hernia without obstruction or gangrene (principal)
CPT/HCPCS: 76705

== ENCOUNTER → 2025-05-03 11:46 | Outpatient (CLI) | payer BC, SELFPAY ==
--- NOTE | 2025-05-03 11:48 | DI.ECHO.S_ITS ---
[facility] : : [address] : : [place] : : [id number] : : Phone: [phone] Echocardiogram Report + + :Name: BRIAN CARBAJAL Study Date: 05/03/2025 Height: 72 in : :Hospital ReadingLocation: Weight: 150 lb : : Gender: Female BSA: 1.9 m2 : :: 1950 Age: 74 yrs BP: 126/83 mmHg: :Reason For Study: STATUS POST MITRAL VALVE REPAIR : :Ordering Physician: ARIEL, : :GRICEL Performed By: Alyce Stephen : :Referring: GRICEL GEORGE : + + Interpretation Summary The left ventricle is normal in size. LVEF 55 to 60% without any significant change from the previous study. The right ventricle is normal size. The right ventricular systolic function is normal. An annuloplasty ring is noted in the mitral position. There is trace mitral regurgitation. No significant mitral stenosis. There is mild tricuspid regurgitation. Compared to the prior echo exam, there has been no change in TR severity. The right ventricular systolic pressure is estimated to be at least 28 mmHg based on an estimated right atrial pressure of 3 mm Hg. Procedure: A two-dimensional transthoracic echocardiogram with color flow and Doppler was performed. The study quality was technically adequate. Comparison is made with the echocardiogram of 03/04/2022. The patient was in sinus rhythm with heart rates between 70-77 bpm during the exam. Left Ventricle: The left ventricle is normal in size. There is normal left ventricular wall thickness. There is no thrombus. The ejection fraction is estimated to be 55-60%. This is unchanged compared to the previous study. Septal motion is consistent with conduction abnormality. MV E/A: 0.59 Med Peak E' Oren: 6.8 cm/sec E/E' med: 9.9. Diastolic parameters suggest a relaxation abnormality of the left ventricle, consistent with probable normal filling pressures. Right Ventricle: The right ventricle is normal size. The right ventricular systolic function is normal. Atria: The left atrial size is normal. Right atrial size is normal. There is no Doppler evidence for an interatrial shunt. Mitral Valve: An annuloplasty ring is noted in the mitral position. No significant mitral valve stenosis. There is trace mitral regurgitation. Aortic Valve: The aortic valve is trileaflet. The aortic valve opens well. There is no aortic valve stenosis. No aortic regurgitation is present. Tricuspid Valve: The tricuspid valve is normal. There is mild tricuspid regurgitation. The right ventricular systolic pressure is estimated to be at least 28 mmHg based on an estimated right atrial pressure of 3 mm Hg. Compared to the prior echo exam, there has been no change in TR severity. Pulmonic Valve: The pulmonic valve leaflets are thin and pliable; valve motion is normal. There is moderate pulmonic regurgitation. This is unchanged compared to the previous study. Great Vessels: The aortic root is normal size. The dimensions of the ascending aorta are normal. The IVC is of normal diameter and collapses greater than 50% with a sniff. This suggests a low right atrial pressure of 3 mm Hg. Pericardium/ Pleura There is no pericardial effusion. There is no pleural effusion. MMode/2D Measurements & Calculations LVIDd: 4.5 cm LVOT diam: 2.2 cm LVIDs: 2.9 cm Ao root diam: 3.5 cm FS: 35.9 % asc Aorta Diam: 3.6 cm IVSd: 0.88 cm Ao Arch Diam (Prox Trans): 2.8 cm LVPWd: 0.84 cm LV sheffield. diameter/BSA (cm/m^2): 2.4 LV sys. diameter/BSA (cm/m^2): 1.5 LA A2 area: 21.2 cm2 RA long axis: 5.3 cm LA A4 area: 15.5 cm2 RA area: 15.7 cm2 LA length (vol): 4.7 cm RA vol: 39.0 ml LA vol: 59.7 ml RA : 20.7 ml/m2 LA vol index: 31.7 ml/m2 IVC diam: 0.90 cm RVD1 (basal): 3.7 cm TAPSE: 1.7 cm Doppler Measurements & Calculations Ao V2 max: 111.3 cm/sec LVOT Max Oren: 81.4 cm/sec Ao V2 mean: 79.4 cm/sec LV V1 max P.7 mmHg Ao max P.0 mmHg LV V1 VTI: 16.5 cm Ao mean P.8 mmHg PUSHPA(I,D): 2.7 cm2 Ao V2 VTI: 23.0 cm PUSHPA(V,D): 2.8 cm2 sev ratio: 0.72 PUSHPA indexed to BSA (cm^2/m^2): 1.4 MV E max oren: 67.2 cm/sec TR max oren: 248.0 cm/sec MV A max oren: 114.6 cm/sec TR max P.6 mmHg MV E/A: 0.59 PA V2 max: 80.3 cm/sec Med Peak E' Oren: 6.8 cm/sec PA V2 mean: 50.5 cm/sec E/E' med: 9.9 PA mean P.2 mmHg Lat Peak E' Oren: 8.1 cm/sec PA pr(Accel): 36.0 mmHg E/E' lat: 8.3 E/e' average: 9.1 MV dec time: 0.40 sec MVA(VTI): 2.2 cm2 MV V2 mean: 72.9 cm/sec SV(LVOT): 62.0 ml MV mean P.6 mmHg MV V2 VTI: 28.5 cm Reading Physician:05:26 PM
--- NOTE | 2025-05-03 11:48 | DI.MG.S_ITS ---
MM screening mammo BI: 05/03/2025. BI-RADS: 1 CLINICAL: 74-year old female for bilateral screening mammogram. Tyrer-Cuzick lifetime risk of 3.9%. No personal or first-degree family history of breast cancer. PRIOR EXAMS 04/27/2024, 05/05/2023, 04/23/2022, 03/29/2021. MAMMOGRAPHY TECHNIQUE: 2D and 3D (tomosynthesis) digital mammographic views obtained, with additional images as needed for full coverage. Current study was also evaluated with a Computer Aided Detection (CAD) system. DENSITY C. The breasts are heterogeneously dense, which may obscure small masses. MAMMOGRAPHY FINDINGS Bilateral: No suspicious mass, asymmetry, microcalcification, or other abnormality seen. No significant change from comparison. IMPRESSION: * No evidence of malignancy. RECOMMENDATIONS Bilateral * Annual screening mammography. OVERALL ASSESSMENT CATEGORY BI-RADS-1: Negative. The [employer] recommends annual screening mammography beginning at age 40 for women with average risk of breast cancer. ELECTRONICALLY SIGNED: Eullaio Puckett M.D. on 05/03/2025 at 01:16:08 PM PT
== END ==
LOC: MAMMO 11:47
PROVIDERS: PCP Family Medicine; Referring Provider Family Medicine; Visit Provider Internal Medicine Cardiovascular Disease
DX: Z12.31 Encounter for screening mammogram for malignant neoplasm of breast (principal); R92.333 Mammographic heterogeneous density, bilateral breasts; Z98.890 Other specified postprocedural states; I07.1 Rheumatic tricuspid insufficiency
CPT/HCPCS: 77063; 77067; 93306

== ENCOUNTER → 2025-05-16 09:07 | Outpatient (CLI) | payer BC, SELFPAY ==
[2025-05-16 09:32] LABS: Estimated Glomerular Filt Rate > 60 mL/min (>60)
== END ==
PROVIDERS: PCP Family Medicine; Referring Provider Family Medicine; Visit Provider Family Medicine
DX: K45.8 Other specified abdominal hernia without obstruction or gangrene (principal)
CPT/HCPCS: 36415; 82565

== ENCOUNTER → 2025-05-17 08:49 | Outpatient (CLI) | payer BC, SELFPAY ==
--- NOTE | 2025-05-17 08:50 | DI.CT.S_ITS ---
PROCEDURE: CT ABDOMEN PELVIS W CON INDICATIONS: r/o hernia TECHNIQUE: After the administration of intravenous contrast, axial sections acquired from the lung bases to the pubic symphysis. Coronal and sagittal reformats were performed. For radiation dose reduction, the following was used: automated exposure control, adjustment of mA and/or kV according to patient size. COMPARISON: None. FINDINGS: Image quality: Diagnostic. Lower Chest: Small right pleural effusion with subjacent atelectasis.. ABDOMEN: Liver: No solid mass. Gallbladder: No radiopaque gallstones or wall thickening. Biliary ducts: No biliary dilation. Pancreas: No ductal dilation. Spleen: Size is within normal limits. Adrenal Glands: No adrenal nodules. Kidneys and Ureters: No hydronephrosis. No solid mass. No complex renal cystic lesion which requires follow up. Stomach and Bowel: Normal colonic caliber, without significant wall thickening. Colonic diverticulosis without acute inflammation. Peritoneum: No abnormal intraperitoneal fluid. No free air. Ventral Wall: No significant ventral hernia. Abdominal Nodes: No retroperitoneal or mesenteric adenopathy by size criteria. Vessels: Aorta and inferior vena cava are normal in size. PELVIS: Pelvic Organs: Unremarkable. Bladder: No bladder wall thickening, accounting for underdistention. Pelvic Nodes: No enlarged lymph nodes. Miscellaneous: Small fat containing right groin hernia. Bones: No aggressive osseous abnormality. IMPRESSION: 1. Small fat containing hernia in the right groin region, which may represent inguinal versus femoral hernia. If clinically indicated, further evaluation with ultrasound can be performed. 2. Sigmoid diverticulosis without CT evidence of acute diverticulitis. 3. Small right pleural effusion with subjacent atelectasis. Approved by: Deborah Velasquez M.D.,Ph.D. on 05/17/2025 at 13:21
== END ==
PROVIDERS: PCP Family Medicine; Referring Provider Family Medicine; Visit Provider Family Medicine
DX: K45.8 Other specified abdominal hernia without obstruction or gangrene (principal); J90 Pleural effusion, not elsewhere classified; J98.11 Atelectasis; K57.30 Diverticulosis of large intestine without perforation or abscess without bleeding
CPT/HCPCS: 74177; Q9967

== ENCOUNTER → 2025-10-03 09:11 | Outpatient (CLI) | payer BC, SELFPAY ==
[2025-10-03 09:48] LABS: Add Manual Diff / Slide Review NO; Hematocrit 39.8 % (36-46); Hemoglobin 13.4 g/dL (12.0-16.0); Lymphocytes Absolute Auto 1200 /uL (1100-4500); Mean Corpuscular HGB Conc 33.7 % (30-36); Mean Corpuscular Hemoglobin 31.4 PG (26-34); Mean Corpuscular Volume 93.3 fL (80-100); Platelet Count 249 X10^3/uL (150-400)
[2025-10-03 10:13] LABS: Alanine Aminotransferase 17 IU/L (<35); Albumin 4.2 g/dL (3.5-5.0); Albumin Globulin Ratio 1.3 (1.0-2.8); Alkaline Phosphatase 73 U/L (38-126); Blood Urea Nitrogen 15 mg/dL (7-17); Calcium 10.2 mg/dL (8.4-10.2); Carbon Dioxide 27 mmol/L (22-32); Chloride 102 mmol/L (98-107); Estimated Glomerular Filt Rate > 60 mL/min (>60); Globulin 3.2 g/dL (1.7-4.1); Glucose 107 mg/dL (70-99); HEMOLYSIS < 15 (0-50); Potassium 4.6 mmol/L (3.4-5.1); Sodium 137 mmol/L (137-145); Total Protein 7.4 g/dL (6.3-8.2)
[2025-10-03 10:34] LABS: Free T4, Direct Thyroxine 1.22 ng/dL (0.78-2.19)
[2025-10-03 10:48] LABS: Thyroid Stimulating Hormone 2.92 uIU/mL (0.47-4.68)
== END ==
PROVIDERS: PCP Family Medicine; Referring Provider Family Medicine; Visit Provider Family Medicine
DX: R73.03 Prediabetes (principal); K45.8 Other specified abdominal hernia without obstruction or gangrene; E78.2 Mixed hyperlipidemia; Z95.2 Presence of prosthetic heart valve
CPT/HCPCS: 36415; 80053; 84439; 84443; 85025